=== PATIENT | female | born 1950 | race Caucasian/White ===

== ENCOUNTER → 2021-11-18 | Outpatient (CLI) | payer MEDICARE ==
--- NOTE | 2021-11-19 02:27 | MR ---
EXAMINATION TYPE: MR brain wo con DATE OF EXAM: 11/18/2021 COMPARISON: None HISTORY: Blood pressure issues, TIA Multiplanar multiecho imaging of the brain without contrast. There is mild cerebral cortical atrophy. There is no mass effect or midline shift. There is no sign o f intracranial hemorrhage. Corpus callosum is intact. Diffusion images show no evidence of an acute i nfarct. There are small patchy areas of increased signal in the deanna bilaterally. There are numerous white matter high signal foci at the cartwright-white matter junction both cerebral hemispheres which are c oalescent and measure up to more than 1 cm. The orbits are intact. Sella turcica is intact. There is no evidence of posterior fossa mass. IMPRESSION: Moderate white matter signal changes could relate to microvascular ischemia or demyelinating disease. There is also involvement of the deanna. No evidence of cortical infarct.
== END | disposition home or self-care (01) ==
LOC: RADMRIMAIN 19:04
PROVIDERS: ATTEND Physician Assistant Medical
DX: R90.89 Other abnormal findings on diagnostic imaging of central nervous system (principal)
CPT/HCPCS: 70551

== ENCOUNTER → 2021-12-13 | Outpatient (CLI) | payer MEDICARE ==
--- NOTE | 2021-12-17 13:02 | CA ---
Transthoracic Echo Report Name: Supriya Magdaleno Age: 71 Gender: F : 1950 Exam Date: 12/13/2021 13:58 Exam Location: [facility] Ht (in): 60 Wt (lb): 157 Ordering Physician: Bam Alejandro DO ([email or web address]) Attending/Referring Phys: [employer]ractor Operator Yadira Vasquez, KELLY Procedure CPT: Indications: R31.1 HEMATURIA Cardiac Hx: COPD, HTN, SMOKER [id number]. Technical Quality: Fair Contrast 1: N/A Total Dose (mL): Contrast 2: Total Dose (mL): MEASUREMENTS (Male / Female) Normal Values 2D ECHO LV Diastolic Diameter PLAX 4.6 cm 4.2 - 5.9 / 3.9 - 5.3 cm LV Systolic Diameter PLAX 3.5 cm IVS Diastolic Thickness 0.7 cm 0.6 - 1.0 / 0.6 - 0.9 cm LVPW Diastolic Thickness 1.0 cm 0.6 - 1.0 / 0.6 - 0.9 cm LV Relative Wall Thickness 0.4 LA Systolic Diameter LX 3.9 cm 3.0 - 4.0 / 2.7 - 3.8 cm LA Volume 36.0 cm??? 18 - 58 / 22 - 52 cm??? M-MODE Aortic Root Diameter MM 2.4 cm LA Systolic Diameter MM 3.5 cm LA Ao Ratio MM 1.5 AV Cusp Separation MM 1.8 cm DOPPLER MV Area PHT 4.0 cm??? Mitral E Point Velocity 72.3 cm/s Mitral A Point Velocity 91.7 cm/s Mitral E to A Ratio 0.8 MV Deceleration Time 188.0 ms MV E' Velocity 4.7 cm/s Mitral E to MV E' Ratio 15.3 FINDINGS Left Ventricle Normal Left ventricular size, wall thickness, systolic function with no obvious regional wall motion abnormalities. Normal Left ventricular diastolic filling pattern. Right Ventricle Normal right ventricular size and function. Right ventricular systolic pressure within normal limits. Right Atrium Normal right atrial size. Left Atrium Mildly increased left atrial diameter. Mitral Valve Mild mitral regurgitation. Aortic Valve Trileaflet aortic valve. Tricuspid Valve Structurally normal tricuspid valve. Pulmonic Valve Pulmonic valve not well visualized. Pericardium No pericardial effusion. Aorta Aortic root and proximal ascending aorta not well visualized. CONCLUSIONS Normal left ventricular ejection fraction 55-60%. Normal left ventricular diastolic function. Mild mitral regurgitation. No pericardial effusion. Previewed by: Dr. Bam Alejandro DO (Electronically Signed) Final Date: 14 Dec 2021 08:16
== END | disposition home or self-care (01) ==
LOC: RADECHMAIN 13:40
PROVIDERS: ATTEND Internal Medicine
DX: I34.0 Nonrheumatic mitral (valve) insufficiency (principal); I10 Essential (primary) hypertension
CPT/HCPCS: 93306

== ENCOUNTER → 2022-11-04 | Outpatient (CLI) | payer MEDICARE ==
--- NOTE | 2022-11-04 10:40 | XR ---
EXAMINATION TYPE: XR chest 2V DATE OF EXAM: 11/04/2022 COMPARISON: NONE TECHNIQUE: PA and lateral views submitted. HISTORY: Shortness of breath FINDINGS: There is consolidation along the lateral margin right upper lobe. Hyperinflation lungs. Hypertrophic and degenerative change of the spine. Biapical pleural thickening. Heart size normal with no overt fa ilure. Hypertrophic and degenerative changes of the spine. IMPRESSION: 1. Peripheral area of consolidation in subpleural location right upper lobe most likely in the basis of pneumonia. Pulmonary infarction or neoplasm not excluded. 2. Correlate for COPD.
== END | disposition home or self-care (01) ==
LOC: RADXRYALE 10:08
PROVIDERS: ATTEND Physician Assistant
DX: J44.1 Chronic obstructive pulmonary disease with (acute) exacerbation (principal); J98.4 Other disorders of lung
CPT/HCPCS: 71046

== ENCOUNTER → 2022-11-25 | Outpatient (CLI) | payer MEDICARE ==
--- NOTE | 2022-11-25 10:24 | XR ---
EXAMINATION TYPE: XR chest 2V DATE OF EXAM: 11/25/2022 COMPARISON: 11/04/2022 TECHNIQUE: PA and lateral views submitted. HISTORY: Abnormal x-ray FINDINGS: There is marked interval improvement. Consolidation involving the lateral margin of the right lung wi th some residual density. Atherosclerotic change aorta. Biapical pleural thickening. Heart size katty l. Scoliosis and degenerative changes of the spine. Hyperinflation suggests COPD. IMPRESSION: 1. Marked interval improvement in the area of consolidation involving the lateral margin of the right upper lobe. Resolving pneumonia. The most likely etiology. Continue to follow to complete resolution to exclude underlying neoplasm.
== END | disposition home or self-care (01) ==
LOC: RADXRYALE 09:58
PROVIDERS: ATTEND Physician Assistant
DX: J18.9 Pneumonia, unspecified organism (principal)
CPT/HCPCS: 71046

== ENCOUNTER → 2023-01-05 | Outpatient (CLI) | payer MEDICARE ==
--- NOTE | 2023-01-05 12:15 | XR ---
EXAMINATION TYPE: XR chest 2V DATE OF EXAM: 01/05/2023 COMPARISON: NONE TECHNIQUE: PA and lateral views submitted. HISTORY: SOB FINDINGS: The lungs are clear and there is no pneumothorax, pleural effusion, or focal pneumonia. Heart size normal and no overt failure. Osseous structures demonstrate hypertrophic and degenerative changes of the spine. Atherosclerotic change aorta. IMPRESSION: 1. No acute process.
== END | disposition home or self-care (01) ==
LOC: RADXRYALE 11:56
PROVIDERS: ATTEND Physician Assistant Medical
DX: R06.02 Shortness of breath (principal)
CPT/HCPCS: 71046

== ENCOUNTER → 2023-10-23 | Outpatient (CLI) | payer MEDICARE ==
--- NOTE | 2023-10-25 02:28 | PE ---
EXAMINATION TYPE: PET CT fusion skull to thigh DATE OF EXAM: 10/23/2023 COMPARISON: Chest x-ray January 05, 2023 HISTORY: Solitary pulmonary nodule TECHNIQUE: Following the intravenous administration of 9.94 mCi of F-18 FDG, whole body images are p erformed from the skull base to the midthigh. Images are reviewed on the computer in the coronal, ax ial, and sagittal planes. Reconstructed rotating images are created on independent workstation and r eviewed on the computer. A localization and attenuation correction CT is performed in conjunction w ith the PET scan. Blood glucose level equals 96. SCAN: Initial Scan FINDINGS: SKULL BASE AND NECK: Hypermetabolic uptake tongue base is presumed artifactual. Mild diffuse muscula r uptake is present. No definitive suspicious abnormal hypermetabolic uptake. CHEST, MEDIASTINUM, AND HILAR REGION: Moderate underlying emphysematous change is identified. There i s irregular masslike consolidation in the periphery of the right upper to midlung measuring 3.5 x 1.9 cm image 88 with mild hypermetabolic uptake, max SUV is 5.37. Similar but smaller nodular consolidat ion anterior left mid lung axial image 88 is noted. The max SUV is 4.43. No additional areas of abnor mal hypermetabolic uptake. ABDOMEN AND PELVIS: No hypermetabolic adrenal masses. Normal excretion. Nonspecific focal bowel hyper metabolic uptake in the right colon axial image 162. The max SUV is 12.43. Should consider colonoscop y to exclude focal mucosal lesion at this level if has not been performed in last 3 years. OSSEOUS STRUCTURES: No abnormal hypermetabolic uptake. OTHER CT: Moderate calcified plaque left carotid bulb level. Small sized hiatal hernia. Large calcified gallstone occupying the gallbladder. Distal colonic diverticula. Scoliosis in the tho racolumbar spine. Moderate to severe narrowing of both hip joints. IMPRESSION: 1. CT findings favor postinflammatory etiology. Advise short-term CT follow-up as neoplasm though les s likely cannot be excluded. If areas do not resolve then further investigation may be warranted. 2. Suspicious area in the proximal colon. Consider colonoscopy follow-up based on clinical correlatio n as hypermetabolic polyp or mass cannot be excluded.
== END | disposition home or self-care (01) ==
LOC: RADPETMAIN 09:54
PROVIDERS: ATTEND Internal Medicine Critical Care Medicine
DX: R91.1 Solitary pulmonary nodule (principal)
CPT/HCPCS: 78815; A9552

== ENCOUNTER 2023-11-20 09:54 | Day surgery (SDC) | payer MEDICARE ==
[2023-11-19 12:10] VITALS: BMI 28.3
[2023-11-20] MEDS: LACTATED RINGERS 1,000 ML IV SCH (10:55)
[2023-11-20 11:28] VITALS: TEMP 97.3
[2023-11-20] MEDS ORDERED: PROPOFOL 10 MG/ML 20 ML VIAL IV ONE (11:45)
--- NOTE | 2023-11-20 12:06 | P.PCN ---
Date of Procedure: 11/20/23 Procedure(s) Performed: BRIEF HISTORY: Patient is a 73-year-old pleasant White female scheduled for an elective colonoscopy as a part of Evaluation of abnormal PET scan that showed a possible colonic lesion in the right colon. Patient Never had a colonoscopy in the past PROCEDURE PERFORMED: ColonoscopyWith biopsy and tattooing with Petty in. PREOPERATIVE DIAGNOSIS: Abdominal CAT scan revealing increased uptake in the right colon IV sedation per Anesthesia. PROCEDURE: After informed consent was obtained, the patient, was brought into the endoscopy unit. IV sedation was administered by Anesthesia under continuous monitoring. Digital rectal examination was normal. Initially the Olympus CF-160 flexible video colonoscope was then inserted in the rectum, gradually advanced into the cecum without any difficulty. Careful examination was performed as the scope was gradually being withdrawn. Ileocecal valve and the appendiceal orifice were visualized and appeared normal. Prep was excellent. Mucosa of the cecum,Appeared normal. Hemoglobin descending colon there was a semicircumferential broad-based a 5 cm polyp identified and multiple biopsies were done from this area. Following this tattooing was performed with Petty ink. Rest of the ascending colon, transverse colon,Appeared normal. In the descending colon there was a 5 limited polyp that was removed by cold biopsy. Rest of the descending colon, sigmoid colon, and rectum appeared normal. Scattered sigmoid diverticulosis.Retroflexion was performed in the rectum and no lesions were seen. The patient tolerated the procedure well. IMPRESSION: 4-5 cm semicircumferential broad-based mid ascending colon polyp status post multiple biopsies followed by tattooing with Petty ink 5 mm descending colon polyp status post cold biopsy Scattered sigmoid diverticulosis RECOMMENDATIONS: Findings of this examination were discussed with the patient as well as a family. She was advised to follow with the biopsy results and she'll be seen in office in one to 2 weeks..Reason the biopsy results will discuss possibility of surgical evaluation versus referral to advance endoscopy unit at [facility] for endoscopy polypectomy .
[2023-11-20 12:13] VITALS: PULSE 67
[2023-11-20 12:55] VITALS: BP 140/75; RESP 18
== END 2023-11-20 12:42 ==
LOC: ORWHC2ENDO 09:54
PROVIDERS: ATTEND Internal Medicine Gastroenterology
DX: D12.2 Benign neoplasm of ascending colon (principal); D12.4 Benign neoplasm of descending colon; K57.30 Diverticulosis of large intestine without perforation or abscess without bleeding; I10 Essential (primary) hypertension; J44.9 Chronic obstructive pulmonary disease, unspecified; Z79.51 Long term (current) use of inhaled steroids; Z79.899 Other long term (current) drug therapy; Z98.41 Cataract extraction status, right eye; Z98.42 Cataract extraction status, left eye
CPT/HCPCS: 88305; 45380; 45381; J2704

== ENCOUNTER → 2024-02-05 | Outpatient (CLI) | payer MEDICARE ==
[2024-02-05 14:07] LABS: African American GFR (CKD) 68 (>60 ml/min/1.73 sqM); Blood Urea Nitrogen 17 mg/dL (7-17); Non-African American GFR(CKD) 59 (>60 ml/min/1.73 sqM)
--- NOTE | 2024-02-05 21:17 | CT ---
EXAMINATION TYPE: CT chest w con CT DLP: 369.80 mGycm, Automated exposure control for dose reduction was used. DATE OF EXAM: 02/05/2024 3:06 PM COMPARISON: Pet/CT 10/23/2023 CLINICAL INDICATION:Female, 74 years old with history of R91.1 SOLITARY PULMONARY NODULE; PHH, Solita ry pulmonary nodule TECHNIQUE: Multiple axial images were obtained through the chest. Sagittal and coronal reformats were created for review. Contrast used:100 mL of Isovue 300 with IV Contrast (None if empty) Oral contrast used: (None if empty) FINDINGS: LUNGS/ PLEURA: Severe centrilobular and paraseptal emphysema changes. Area of concern within the righ t chest has nearly completely resolved there is minimal interstitial streaky scarring now in place. N o focal inflammation, pneumothorax AIRWAY: Patent and unremarkable. HEART: Size within normal limits. MEDIASTINUM: No gross evidence of adenopathy. VASCULATURE: Aneurysmal dilation of the aorta as it enters the abdomen measuring up to 37 x 20 mm MUSCULOSKELETAL: No acute osseous abnormalities SOFT TISSUES/LYMPH NODES: Unremarkable. LOWER NECK: No significant findings. UPPER ABDOMEN: Partially visualized calcification in the gallbladder fossa compatible with IMPRESSION: 1. Near complete resolution of prior area of consolidation within the right lung compatible with lik carlos eduardo prior atelectasis and/or focal airspace disease. No suspicious masses. 2. Severe emphysema. 3. Large calcified fossa gallstone in the gallbladder. 4. 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
== END | disposition home or self-care (01) ==
LOC: RADCTMAIN 13:04
PROVIDERS: ATTEND Internal Medicine Critical Care Medicine
DX: R91.1 Solitary pulmonary nodule (principal); I71.23 Aneurysm of the descending thoracic aorta, without rupture; J43.9 Emphysema, unspecified; K80.20 Calculus of gallbladder without cholecystitis without obstruction
CPT/HCPCS: 82565; 84520; 71260; 36415; Q9967

== ENCOUNTER → 2024-04-26 | Outpatient (CLI) | payer MEDICARE ==
[2024-04-26 23:35] LABS: Appearance,Urine Cloudy (Clear); Bilirubin,Urine Negative (Negative); Blood,Urine Negative (Negative); Color,Urine Yellow (Yellow); Ketones,Urine Trace (Negative); Nitrite,Urine Negative (Negative); Specific Gravity,Urine 1.025 (1.001-1.030)
[2024-04-26 23:52] LABS: Bacteria,Urine 1+ (None Seen)
== END | disposition home or self-care (01) ==
LOC: LABWHC1 15:53
PROVIDERS: ATTEND Surgery Plastic and Reconstructive Surgery
DX: N39.0 Urinary tract infection, site not specified (principal)
CPT/HCPCS: 81001; 87086

== ENCOUNTER 2024-06-02 09:37 | Inpatient (IN) | payer MEDICARE ==
[2024-05-31 11:17] VITALS: BMI 31.2
--- NOTE | 2024-06-02 09:56 | P.GSHP ---
History of Present Illness H&P Date: 06/02/24 CCHIEF COMPLAINT: Colon cancer. HISTORY OF PRESENT ILLNESS: Supriya Magdaleno is a 74 year-old female recently diagnosed with colon cancer November 2023. Patient has had a long preoperative assessment including optimization for severe chronic obstructive pulmonary disease and cardiac risk assessment. Bradford horner had severe urinary tract infection with need of antibiotics also delaying her surgical intervention. Patient presents with colon cancer. PAST MEDICAL HISTORY: Please see list. PAST SURGICAL HISTORY: Please see list. MEDICATIONS: Please see list. ALLERGIES: Please see list. SOCIAL HISTORY: No illicit drug use FAMILY HISTORY: No reports of Crohn disease or ulcerative colitis. Strong family history of colon cancer. REVIEW OF ORGAN SYSTEMS: GI: Changes in bowel habits and blood in stools. Recent colonoscopy with adenoma. CONSTITUTIONAL: No fevers or chills. Has morbid obesity, BMI over 40. HEENT: Denies any trouble with vision, hearing or nosebleeds. No difficulty swallowing. LYMPHATIC: The patient denies any lumps and bumps around the neck. ENDOCRINE: Denies any thyroid disorders. Denies any blood sugar glucose intolerance. RESPIRATORY: Has chronic obstructive pulmonary disease less than 50% of lung capacity CARDIOVASCULAR: Has hypertensive heart disease with cardiomyopathy. GENITOURINARY: Recent urinary tract infection with blood clots. MUSCULOSKELETAL: Has occassional back pain, stiffness or joint arthritis. NEUROLOGIC: Denies any numbness or tingling along the distal extremities. No seizure disorders or headaches. PSYCHIATRIC: Denies any depression or suicidal ideation. HEMATOLOGIC: Denies any abnormal bleeding or bruising. BREASTS: Denies any breast lumps, pain or nipple discharge. SKIN: No current skin cancer. No rash. PHYSICAL EXAM: VITAL SIGNS: Stable Patient is a 74-year-old female. GENERAL: Well developed and in no acute distress. Pleasant. HEENT: No sclera icterus. Extraocular movements grossly intact. Moist buccal mucosa. Head is atraumatic, normocephalic. Hears conversational speech. No nasal drainage. Wears glasses. NECK: Supple without lymphadenopathy. No JV distention. CHEST: Non-labored respirations and equal bilateral excursions. CARDIOVASCULAR: Regular rate and rhythm. Palpable 2+ radial pulses. ABDOMEN: Obese. Nontender. MUSCULOSKELETAL: No clubbing, cyanosis or edema. NEUROLOGIC: No focal or lateralizing signs. PSYCH: Appropriate affect. Alert and oriented to person, place and time. SKIN: Well perfused. Good skin turgor. STUDIES: CT of the chest demonstrating severe chronic struct of pulmonary disease PATHOLOGY: Reviewed and positive for malignancy adenocarcinoma. RECORDS: Cardiac risk assessment demonstrates high risk. ASSESSMENT: 1. Colon cancer. 2. Lung nodule. 3. Morbid obesity due to excess calories 4. COPD. PLAN: 1. Recommend endoscopy to tattoo and for surgical resection via laparoscopic approach 2. Inpatient admission advised due to colon cancer and chronic obstructive pulmonary disease with limited lung volume 3. Enhanced colon recovery described 4. Robotic approach described possibility of open technique for colon resection 5. Patient is at moderate to high risk for complications due to comorbidities Past Medical History Past Medical History: COPD, GERD/Reflux, Hypertension, Thyroid Disorder Additional Past Medical History / Comment(s): chronic emphysema,started on O2@ 2 L NC,"rt lung nodule-had follow up CT and seen something in colon that needed to have colonoscopy" TREATED FOR UTI 04/26/24 History of Any Multi-Drug Resistant Organisms: None Reported Past Surgical History: Orthopedic Surgery Additional Past Surgical History / Comment(s): cyst removed left hand, janel cataract, COLONOSCOPY Past Anesthesia/Blood Transfusion Reactions: No Reported Reaction Additional Past Anesthesia/Blood Transfusion Reaction / Comment(s): no hx blood transfusion Smoking Status: Former smoker - Past Family History Mother Family Medical History: Cancer Additional Family Medical History / Comment(s): ovarian CA Medications and Allergies Home Medications Medication Instructions Recorded Confirmed Type Albuterol Inhaler [Ventolin Hfa 1 - 2 puff INHALATION Q6H PRN 11/19/23 05/31/24 History Inhaler] Budesonide/Formoterol Fumarate 2 puff INHALATION BID 11/19/23 05/31/24 History [Symbicort 160-4.5 Mcg Inhaler] Cholecalciferol [Vitamin D3 (25 50 mcg PO DAILY 11/19/23 05/31/24 History Mcg = 1000 Iu)] Citalopram Hydrobromide 20 mg PO QAM 11/19/23 05/31/24 History [Citalopram HBr] Ipratropium-Albuterol Nebulize 3 ml INHALATION QID 11/19/23 05/31/24 History [Duoneb 0.5 mg-3 mg/3 ml Soln] Levothyroxine Sodium [Synthroid] 50 mcg PO QAM 11/19/23 05/31/24 History Metoprolol Tartrate [Lopressor] 50 mg PO BID 11/19/23 05/31/24 History [place]-3/Dha/Epa/Fish Oil [Fish Oil 1 each PO DAILY 11/19/23 05/31/24 History 1,000 mg Softgel] Omeprazole [PriLOSEC] 20 mg PO Q2D 11/19/23 05/31/24 History QUEtiapine FUMARATE 50 mg PO HS 11/19/23 05/31/24 History lisinopriL [Lisinopril] 10 mg PO BID 11/19/23 05/31/24 History tiZANidine HCL 4 mg PO DAILY 11/19/23 05/31/24 History traZODone HCL [Desyrel] 100 mg PO HS 11/19/23 05/31/24 History Allergies Allergy/AdvReac Type Severity Reaction Status Date / Time No Known Allergies Allergy Verified 05/31/24 11:05
[2024-06-02] MEDS: IV FLUID CONTINUATION 1,000 ML IV ONE (10:15)
[2024-06-02] MEDS ORDERED: Antibiotics per Pharmacy 1 EACH MISC MISCELLANE PRN (10:22)
[2024-06-02 10:39] LABS: Basophils % (A) 0 %; Eosinophils # (A) 0.7 k/uL (0-0.7); Eosinophils % (A) 6 %; HCT 34.9 % (34.0-46.0); HGB 11.5 gm/dL (11.4-16.0); Lymphocytes # (A) 1.5 k/uL (1.0-4.8); Lymphocytes % (A) 14 %; MCH 30.5 pg (25.0-35.0); MCHC 33.1 g/dL (31.0-37.0); MCV 92.3 fL (80.0-100.0); Mean Platelet Volume 6.8; Monocytes # (A) 0.5 k/uL (0-1.0); Monocytes % (A) 4 %; Neutrophils % (A) 73 %; Platelet Count 309 k/uL (150-450); RBC 3.78 m/uL (3.80-5.40); RDW 12.8 % (11.5-15.5); WBC 10.9 k/uL (3.8-10.6)
[2024-06-02 10:50] LABS: ALT 26 U/L (4-34); African American GFR (CKD) 68 (>60 ml/min/1.73 sqM); Albumin 4.3 g/dL (3.5-5.0); Anion Gap 11 mmol/L; Blood Urea Nitrogen 10 mg/dL (7-17); Calcium 8.5 mg/dL (8.4-10.2); Carbon Dioxide 21 mmol/L (22-30); Chloride 105 mmol/L (98-107); Glucose 117 mg/dL (74-99); Non-African American GFR(CKD) 59 (>60 ml/min/1.73 sqM); Sodium 137 mmol/L (137-145); Total Bilirubin 0.6 mg/dL (0.2-1.3); Total Protein 7.4 g/dL (6.3-8.2)
[2024-06-02 10:52] LABS: AST 38 U/L (14-36); Alkaline Phosphatase 59 U/L (38-126); Potassium 4.1 mmol/L (3.5-5.1)
[2024-06-02] MEDS: LACTATED RINGERS 1,000 ML IV SCH (11:06)
[2024-06-02] MEDS ORDERED: LIDOCAINE 1% INJ 10MG/ML (20 ML MDV) ONE (11:12)
[2024-06-02] MEDS ORDERED: PROPOFOL 10 MG/ML 20 ML VIAL IV ONE (11:12)
--- NOTE | 2024-06-02 11:29 | XR ---
EXAMINATION TYPE: XR chest 2V DATE OF EXAM: 06/02/2024 10:46 AM COMPARISON: Chest radiographs from 01/05/2023 CLINICAL INDICATION: Female, 74 years old with history of Shortness of breath; [facility] TECHNIQUE: XR chest 2V Frontal and lateral views of the chest. FINDINGS: Lungs/Pleura: There is flattening of the diaphragm with increased lucency of the lungs. No evidence o f pneumothorax, pleural effusion or focal consolidation. Pulmonary vascularity: Unremarkable. Heart/mediastinum: Cardiomediastinal silhouette is unremarkable. Atherosclerotic calcifications are seen in the aorta. Musculoskeletal: No acute osseous pathology. Other findings: None IMPRESSION: 1. No acute cardiopulmonary disease process. 2. COPD changes. [facility], , 06/02/2024 11:27 AM
--- NOTE | 2024-06-02 12:21 | P.PCN ---
Date of Procedure: 06/02/24 Description of Procedure: PREOPERATIVE DIAGNOSIS: Ascending colon cancer POSTOPERATIVE DIAGNOSIS: Ascending colon cancer Colonoscopy screening. Diverticulosis, scattered. OPERATION: Colonoscopy to the cecum, ileocecal valve and appendiceal orifice. Colonoscopy with injection of Petty ink, 5 cc SURGEON: Aliyah Ng MD. ANESTHESIA: MAC. INDICATIONS: The patient is a 74-year-old female who presents for colonoscopy screening. Benefits and risks were described and informed consent was obtained. DESCRIPTION OF PROCEDURE: The patient had undergone Sutab prep. The patient had been brought into the operating room and laid in the left lateral decubitus position. After adequate intravenous sedation, the rectum was examined with 2% lidocaine jelly. No external hemorrhoids were encountered. The rectal tone was within normal limits. No lesions were palpated in the rectal vault. An Olympus colonoscope was advanced until the cecum, ileocecal valve and appendiceal orifice were clearly viewed. The prep was excellent. Scattered diverticulosis was encountered. Mass along the ascending colon tattooed with Petty ink 5 cc. No evidence of focal colitis was found. Retroflexion of the scope demonstrated grade 1 internal hemorrhoids without active bleeding or inflammation. The colon was desufflated. The patient had tolerated the procedure well. Withdrawal time was over 6 minutes. FINDINGS: Aronchick preparation quality scale 1 (1-5) Injection of Petty ink 5 cc, ascending colon for ascending colon mass Internal hemorrhoids, grade 3 External prolapsed hemorrhoids, grade 3 No arteriovenous malformations. No focal colitis. RECOMMENDATIONS: Recommend colectomy for ascending colon mass/cancer. Inpatient admission described. Plan - Discharge Summary Discharge Rx Participant: Yes New Discharge Prescriptions: No Action Albuterol Inhaler [Ventolin Hfa Inhaler] 1 - 2 puff INHALATION Q6H PRN PRN Reason: sob Ipratropium-Albuterol Nebulize [Duoneb 0.5 mg-3 mg/3 ml Soln] 3 ml INHALATION QID Omeprazole [PriLOSEC] 20 mg PO Q2D lisinopriL [Lisinopril] 10 mg PO BID traZODone HCL [Desyrel] 100 mg PO HS QUEtiapine FUMARATE 50 mg PO HS tiZANidine HCL 4 mg PO DAILY Metoprolol Tartrate [Lopressor] 50 mg PO BID [place]-3/Dha/Epa/Fish Oil [Fish Oil 1,000 mg Softgel] 1 each PO DAILY Cholecalciferol [Vitamin D3 (25 Mcg = 1000 Iu)] 50 mcg PO DAILY Levothyroxine Sodium [Synthroid] 50 mcg PO QAM Citalopram Hydrobromide [Citalopram HBr] 20 mg PO QAM Budesonide/Formoterol Fumarate [Symbicort 160-4.5 Mcg Inhaler] 2 puff INHALATION BID Discharge Medication List Albuterol Inhaler [Ventolin Hfa Inhaler] 1 - 2 puff INHALATION Q6H PRN 11/19/23 [History] Budesonide/Formoterol Fumarate [Symbicort 160-4.5 Mcg Inhaler] 2 puff INHALATION BID 11/19/23 [History] Cholecalciferol [Vitamin D3 (25 Mcg = 1000 Iu)] 50 mcg PO DAILY 11/19/23 [History] Citalopram Hydrobromide [Citalopram HBr] 20 mg PO QAM 11/19/23 [History] Ipratropium-Albuterol Nebulize [Duoneb 0.5 mg-3 mg/3 ml Soln] 3 ml INHALATION QID 11/19/23 [History] Levothyroxine Sodium [Synthroid] 50 mcg PO QAM 11/19/23 [History] Metoprolol Tartrate [Lopressor] 50 mg PO BID 11/19/23 [History] [place]-3/Dha/Epa/Fish Oil [Fish Oil 1,000 mg Softgel] 1 each PO DAILY 11/19/23 [History] Omeprazole [PriLOSEC] 20 mg PO Q2D 11/19/23 [History] QUEtiapine FUMARATE 50 mg PO HS 11/19/23 [History] lisinopriL [Lisinopril] 10 mg PO BID 11/19/23 [History] tiZANidine HCL 4 mg PO DAILY 11/19/23 [History] traZODone HCL [Desyrel] 100 mg PO HS 11/19/23 [History]
[2024-06-02] MEDS ORDERED: ALBUTEROL NEBULIZED 2.5 MG/3 ML INHALATION PRN (13:04)
[2024-06-02] MEDS: metroNIDAZOLE 500 MG TAB PO SCH (13:43)
[2024-06-02] MEDS: NEOMYCIN 500 MG TAB PO SCH (13:43)
--- NOTE | 2024-06-02 15:12 | P.CNPUL ---
History of Present Illness Consult date: 06/02/24 Requesting physician: Aliyah Ng Reason for consult: COPD, other Chief complaint: Suspected colon cancer. History of present illness: Pulmonary consultation dated June 02, 2024. This is a 75-year-old female with a history of COPD. The patient has pretty severe COPD, with an FEV1 that is 46% of predicted. Her FEV1 is 0.86 L. The patient had a colonoscopy today, and is scheduled to have colon surgery tomorrow, with Dr. Ng. She is suspected to have colon cancer. Pulmonary function test done in the office reveal an FEV1 that is 0.86 L which is 46% of predicted. Her MVV is 41 L/min, and her RV/TLC ratio 72%. Based on these data, the patient was at moderate to high increased operative risk, based on pulmonary function criteria. The patient was diagnosed with colon cancer, November 2023. The patient was sent to me for optimization of her lung function. As an outpat ient, the patient is maintained on updrafts, with DuoNeb, and Symbicort. We restarted those medications. I did explain to the patient, that she may have a prolonged period of time on the mechanical ventilator. White count is 10.9, hemoglobin 11.5, hematocrit 34.9, and platelet count is normal. Sodium 137, potassium 4.1, chlorides 105, CO2 21, BUN and creatinine were 10 and 0.96. X- ray is negative for acute cardiopulmonary disease. There are changes of COPD. Review of Systems REVIEW OF SYSTEMS: CONSTITUTIONAL: [Negative.] NEUROLOGIC: [ Negative.] HEENT: [ Negative.] CARDIAC: [Negative.] PULMONARY: Shortness of breath on exertion, as well as coughing, and wheezing. GI: [Negative.] : [Negative.] RHEUMATOLOGIC: [ Negative.] IMMUNOLOGIC: [ Negative.] ENDOCRINE: [Negative. ] DERMATOLOGIC: [Negative.] Past Medical History Past Medical History: COPD, GERD/Reflux, Hypertension, Thyroid Disorder Additional Past Medical History / Comment(s): chronic emphysema,started on O2@ 2 L NC,"rt lung nodule-had follow up CT and seen something in colon that needed to have colonoscopy" TREATED FOR UTI 04/26/24 History of Any Multi-Drug Resistant Organisms: None Reported Past Surgical History: Orthopedic Surgery Additional Past Surgical History / Comment(s): cyst removed left hand, janel cataract, COLONOSCOPY Past Anesthesia/Blood Transfusion Reactions: No Reported Reaction Additional Past Anesthesia/Blood Transfusion Reaction / Comment(s): no hx blood transfusion Smoking Status: Former smoker - Past Family History Mother Family Medical History: Cancer Additional Family Medical History / Comment(s): ovarian CA Medications and Allergies Home Medications Medication Instructions Recorded Confirmed Type Albuterol Inhaler [Ventolin Hfa 1 - 2 puff INHALATION Q6H PRN 11/19/23 06/02/24 History Inhaler] Budesonide/Formoterol Fumarate 2 puff INHALATION BID 11/19/23 06/02/24 History [Symbicort 160-4.5 Mcg Inhaler] Cholecalciferol [Vitamin D3 (25 50 mcg PO DAILY 11/19/23 06/02/24 History Mcg = 1000 Iu)] Citalopram Hydrobromide 20 mg PO QAM 11/19/23 06/02/24 History [Citalopram HBr] Ipratropium-Albuterol Nebulize 3 ml INHALATION QID 11/19/23 06/02/24 History [Duoneb 0.5 mg-3 mg/3 ml Soln] Levothyroxine Sodium [Synthroid] 50 mcg PO QAM 11/19/23 06/02/24 History Metoprolol Tartrate [Lopressor] 50 mg PO BID 11/19/23 06/02/24 History [place]-3/Dha/Epa/Fish Oil [Fish Oil 1 each PO DAILY 11/19/23 06/02/24 History 1,000 mg Softgel] Omeprazole [PriLOSEC] 20 mg PO Q2D 11/19/23 06/02/24 History QUEtiapine FUMARATE 50 mg PO HS 11/19/23 06/02/24 History lisinopriL [Lisinopril] 10 mg PO BID 11/19/23 06/02/24 History tiZANidine HCL 4 mg PO DAILY 11/19/23 06/02/24 History traZODone HCL [Desyrel] 100 mg PO HS 11/19/23 06/02/24 History Allergies Allergy/AdvReac Type Severity Reaction Status Date / Time No Known Allergies Allergy Verified 06/02/24 10:16 Physical Exam Osteopathic Statement: *. No significant issues noted on an osteopathic structural exam other than those noted in the History and Physical/Consult. Vitals: Vital Signs Temp Pulse Resp BP Pulse Ox 06/02/24 14:30 98 F 102 H 18 178/95 93 L 06/02/24 13:40 84 18 162/83 98 06/02/24 11:57 82 18 162/87 97 06/02/24 11:42 84 16 151/85 97 06/02/24 11:08 83 22 190/81 94 L 06/02/24 10: 98.0 F 97 26 H 185/84 95 Intake and Output 06/02/24 06/02/24 06/02/24 06:59 14:59 22:59 Intake Total 700 Balance 700 Intake: IV 700 Other: Weight 74.9 kg No acute distress, oriented 3. No audible wheezing. The patient is currently on 3 L. No conversational dyspnea. HEENT examination is grossly unremarkable. Mucous membranes are moist. No oral lesions. Neck supple. Full range of motion. No adenopathy thyromegaly or neck vein distention. Cardiovascular examination reveals regular rhythm rate. S1-S2 normal. No S3 or S4. No discernible murmur noted. Heart sounds are distant. Lungs reveal mild expiratory wheezes. No rhonchi or crackles. Breath sounds ar e equal bilaterally but diminished throughout. Abdomen soft bowel sounds are heard. No masses or tenderness. Extremities are intact. No cyanosis clubbing or edema. Skin is without rash or lesion. Neurologic examination is brief but nonfocal. Results - Laboratory Findings CBC and BMP: 06/02/24 10:28 06/02/24 10:28 Abnormal lab findings: Abnormal Labs 06/02/24 06/02/24 10:28 10:28 WBC 10.9 H RBC 3.78 L Neutrophils # 8.0 H Carbon Dioxide 21 L Glucose 117 H AST 38 H - Diagnostic Findings Chest x-ray: image reviewed Assessment and Plan Assessment: Recently diagnosed colon cancer, November 2023 with anticipated colon resection, June 03, 2024. Colonoscopy, June 02, 2024. History of severe COPD, with an FEV1 that is 46% of predicted. History of hypertension. History of hypothyroidism. History of vitamin D deficiency. Gastroesophageal reflux disease. Previous history of tobacco use. Plan: Plan dated June 02, 2024. Based on the patient's lung function, that were done in the office, the patient is at moderate to high increased operative risk. The patient has severe COPD. She has stage III disease. FEV1 of 0.86 L or 46% of predicted. Her MVV is 41 L/min, and her RV/TLC ratio 72%. The patient was placed on Symbicort 160/4.5, 2 puffs twice a day, and updrafts with albuterol sulfate and ipratropium bromide, 4 times daily and as needed. She is also on oxygen, 3 L. The operative risks were explained to the patient, when I saw her in the office. No additional recommendations are made. Time with Patient: Greater than 30
[2024-06-02] MEDS: IPRATROPIUM-ALBUTEROL 3 ML NEB INHALATION SCH (15:42)
[2024-06-02] MEDS: PEG 3350 (236 GM/BTL) + LYTES 4,000 ML BOTTLE PO ONE (16:01)
[2024-06-02] MEDS: SODIUM CHLORIDE 0.9% 1,000 ML IV ONE (16:02)
[2024-06-02] MEDS: SODIUM CHLORIDE 0.9% 1,000 ML IV SCH (16:48)
[2024-06-02] MEDS: SYMBICORT 160-4.5 MCG INHALER INHALATION SCH (20:43)
[2024-06-02] MEDS: METOPROLOL TARTRATE 50 MG TAB PO SCH (20:51)
[2024-06-02] MEDS: lisinopriL 10 MG TAB PO SCH (20:51)
[2024-06-02] MEDS: QUEtiapine 50 MG TAB PO SCH (23:12)
[2024-06-02] MEDS: traZODone HCL 100 MG TAB PO SCH (23:12)
[2024-06-03 05:51] LABS: Basophils % (A) 0 %; Eosinophils # (A) 0.4 k/uL (0-0.7); Eosinophils % (A) 4 %; HCT 33.6 % (34.0-46.0); HGB 10.7 gm/dL (11.4-16.0); Hypochromasia Slight; Lymphocytes # (A) 1.5 k/uL (1.0-4.8); Lymphocytes % (A) 12 %; MCH 29.9 pg (25.0-35.0); MCHC 31.7 g/dL (31.0-37.0); MCV 94.2 fL (80.0-100.0); Mean Platelet Volume 7.3; Monocytes # (A) 0.7 k/uL (0-1.0); Monocytes % (A) 5 %; Neutrophils # (A) 9.6 k/uL (1.3-7.7); Neutrophils % (A) 77 %; Platelet Count 260 k/uL (150-450); RBC 3.56 m/uL (3.80-5.40); RDW 12.7 % (11.5-15.5); WBC 12.4 k/uL (3.8-10.6)
[2024-06-03 06:02] LABS: ALT 23 U/L (4-34); AST 30 U/L (14-36); African American GFR (CKD) 74 (>60 ml/min/1.73 sqM); Albumin 3.6 g/dL (3.5-5.0); Albumin/Globulin Ratio 1.3; Alkaline Phosphatase 55 U/L (38-126); Anion Gap 6 mmol/L; Blood Urea Nitrogen 6 mg/dL (7-17); Calcium 7.9 mg/dL (8.4-10.2); Carbon Dioxide 28 mmol/L (22-30); Chloride 104 mmol/L (98-107); Globulin 2.8 g/dL; Glucose 111 mg/dL (74-99); Non-African American GFR(CKD) 64 (>60 ml/min/1.73 sqM); Potassium 3.7 mmol/L (3.5-5.1); Sodium 138 mmol/L (137-145); Total Bilirubin 0.4 mg/dL (0.2-1.3); Total Protein 6.4 g/dL (6.3-8.2)
[2024-06-03] MEDS: CITALOPRAM HYDROBROMIDE 20 MG TAB PO SCH (10:09)
[2024-06-03] MEDS: tiZANidine 4 MG TAB PO SCH (10:09)
[2024-06-03] MEDS: IV FLUID CONTINUATION 600 ML IV ONE ×2 (12:35)
[2024-06-03] MEDS: ACETAMINOPHEN TAB 500 MG TAB PO PRN (12:57)
[2024-06-03] MEDS: ALVIMOPAN 12 MG CAPSULE PO PRN (12:57)
[2024-06-03] MEDS: MELOXICAM 7.5 MG TAB PO PRN (12:57)
[2024-06-03] MEDS: IV FLUID CONTINUATION 1,000 ML IV ONE (13:00)
[2024-06-03] MEDS: MIDAZOLAM 2 MG/2 ML VIAL IV ONE (13:04)
[2024-06-03] MEDS: HEPARIN SODIUM,PORCINE 5,000 UNIT/ML 1 ML VIAL SQ PRN (13:29)
[2024-06-03] MEDS ORDERED: LIDOCAINE 1% INJ 10MG/ML (20 ML MDV) ONE (14:06)
[2024-06-03] MEDS ORDERED: hydrALAZINE HCL 20 MG/ML 1 ML VIAL ONE (14:06)
[2024-06-03] MEDS ORDERED: ROPIVACAINE 5 MG/ML 30 ML VIAL ONE (14:06)
[2024-06-03] MEDS ORDERED: PHENYLEPHRINE 10 MG/ML VIAL ONE (14:06)
[2024-06-03] MEDS ORDERED: MIDAZOLAM 2 MG/2 ML VIAL ONE (14:06)
[2024-06-03] MEDS ORDERED: DEXAMETHASONE SOD PHOSPHATE 4 MG/ML 1 ML VIAL ONE (14:06)
[2024-06-03] MEDS ORDERED: NEOSTIGMINE 1 MG/ML 10 ML VIAL ONE (14:06)
[2024-06-03] MEDS ORDERED: SUCCINYLCHOLINE CHLORIDE 200 MG/10 ML VIAL IV ONE (14:06)
[2024-06-03] MEDS ORDERED: ALBUTEROL HFA INHALER INHALATION ONE (14:06)
[2024-06-03] MEDS ORDERED: GLYCOPYRROLATE 0.2 MG/ML 2 ML VIAL ONE (14:06)
[2024-06-03] MEDS ORDERED: fentaNYL (PF) 50 MCG/ML 2 ML AMP ONE (14:06)
[2024-06-03] MEDS ORDERED: PROPOFOL 10 MG/ML 20 ML VIAL IV ONE (14:06)
[2024-06-03] MEDS ORDERED: ROCURONIUM 10 MG/ML (5 ML VIAL) IV ONE (14:06)
--- NOTE | 2024-06-03 14:10 | P.ANPRN ---
Procedure Note - Anesthesia - Nerve Block Performed Bilateral Erector Spinae Single Date of Procedure: 06/03/24 Procedure Start Time: 13:04 Procedure Stop Time: 13:09 Location of Patient: PreOp Indication: Acute Post-Operative Pain, Analgesia, Requested by Surgeon Sedation Type: Sedate with meaningful contact maintained Preparation: Sterile Prep Position: Prone Catheter: None Needle Types: Pajunk Needle Gauge: 21 Ultrasound used to visualize needle placement: Yes Ultrasound used to observe medication spread: Yes Injectate: 0.5% Ropivacaine (see comment for volume) (Ropiv 20ml+Decadron 4mg---Each side. T11- Needle level.) Blood Aspirated: No Pain Paresthesia on Injection Noted: No Resistance on Injection: Normal Image Stored and Saved: Yes Events: Uneventful and Well Tolerated
[2024-06-03] MEDS: metroNIDAZOLE-NS PMX 500 MG in SALINE 1 100ML.BAG IVPB PRN (14:11)
--- NOTE | 2024-06-03 14:26 | P.PN ---
Subjective Progress Note Date: 06/03/24 This is a 75-year-old female with a history of COPD. The patient has pretty severe COPD, with an FEV1 that is 46% of predicted. Her FEV1 is 0.86 L. The patient had a colonoscopy today, and is scheduled to have colon surgery tomorrow, with Dr. Ng. She is suspected to have colon cancer. Pulmonary function test done in the office reveal an FEV1 that is 0.86 L which is 46% of predicted. Her MVV is 41 L/min, and her RV/TLC ratio 72%. Based on these data, the patient was at moderate to high increased operative risk, based on pulmonary function criteria. The patient was diagnosed with colon cancer, November 2023. The patient was sent to me for optimization of her lung function. As an outpat ient, the patient is maintained on updrafts, with DuoNeb, and Symbicort. We restarted those medications. I did explain to the patient, that she may have a prolonged period of time on the mechanical ventilator. White count is 10.9, hemoglobin 11.5, hematocrit 34.9, and platelet count is normal. Sodium 137, potassium 4.1, chlorides 105, CO2 21, BUN and creatinine were 10 and 0.96. X- ray is negative for acute cardiopulmonary disease. There are changes of COPD. The patient is seen today June 03, 2024 in follow-up on the regular medical floor. She is sitting up in a chair at the bedside. Awake and alert in no acute distress. Maintaining good O2 saturations in the 90s on 3 L/min per nasal cannula. She has normal saline at 50 mL/h. White count 12.4. Hemoglobin 10.7. Platelets 260. Sodium 138. Potassium 3.7. Bicarb 28. BUN 6. Creatinine 0.9. Glucose 111. Plan is for laparoscopic sigmoid colectomy/low anterior resection today. Objective - Vital Signs Vital signs: Vital Signs Temp 97.4 F L 06/03/24 12:41 Pulse 70 06/03/24 13:20 Resp 16 06/03/24 13:20 BP 110/56 06/03/24 13:20 Pulse Ox 97 06/03/24 13:20 FiO2 Intake & Output 06/02/24 06/03/24 06/03/24 18:59 06:59 18:59 Intake Total 700 0 450 Output Total 3 Balance 700 -3 450 Weight 74.9 kg Intake: IV 700 450 Oral 0 Output: Stool 3 Other: Voiding Method Bedside Commode # Voids 1 3 # Bowel Movements 1 1 - Exam GENERAL EXAM: Alert, pleasant 74-year-old female, on 3 L nasal cannula, comfortable in no apparent distress. HEAD: Normocephalic. EYES: Normal reaction of pupils, equal size. NOSE: Clear with pink turbinates. THROAT: No erythema or exudates. NECK: No masses, no JVD. CHEST: No chest wall deformity. LUNGS: Equal air entry with no crackles, wheeze, rhonchi or dullness. CVS: S1 and S2 normal with no audible murmur, regular rhythm. ABDOMEN: No hepatosplenomegaly, normal bowel sounds, no guarding or rigidity. SPINE: No scoliosis or deformity SKIN: No rashes CENTRAL NERVOUS SYSTEM: No focal deficits, tone is normal in all 4 extremities. EXTREMITIES: There is no peripheral edema. No clubbing, no cyanosis. Peripheral pulses are intact. - Labs CBC & Chem 7: 06/03/24 05:37 06/03/24 05:37 Labs: Abnormal Lab Results - Last 24 Hours (Table) 06/03/24 06/03/24 Range/Units 05:37 05:37 WBC 12.4 H (3.8-10.6) k/uL RBC 3.56 L (3.80-5.40) m/uL Hgb 10.7 L (11.4-16.0) gm/dL Hct 33.6 L (34.0-46.0) % Neutrophils # 9.6 H (1.3-7.7) k/uL BUN 6 L (7-17) mg/dL Glucose 111 H (74-99) mg/dL Calcium 7.9 L (8.4-10.2) mg/dL Assessment and Plan Assessment: Recently diagnosed colon cancer, November 2023 with anticipated colon resection, June 03, 2024. Colonoscopy, June 02, 2024. History of severe COPD, with an FEV1 that is 46% of predicted. History of hypertension. History of hypothyroidism. History of vitamin D deficiency. Gastroesophageal reflux disease. Previous history of tobacco use. Plan: The patient was seen and evaluated Labs and medications reviewed Plan is for surgical resection of the colon mass today We will continue to follow and make further recommendations based on her clinical status I have personally seen and examined the patient, performed the documentation and the assessment and plan as written. Number of minutes spent on the visit: 10 Dictation was produced using [employer] dictation software. Please excuse any grammatical, word or spelling errors.
[2024-06-03] MEDS: LIDOCAINE 1%-EPI 1:100,000 20 ML VIAL SQ ONE (14:47)
[2024-06-03] MEDS: LACTATED RINGERS 1,000 ML IV ONE ×2 (15:37→16:48)
[2024-06-03] MEDS ORDERED: HYDROmorphone 2 MG/ML 1 ML SYRINGE IVP PRN (17:42)
[2024-06-03] MEDS ORDERED: ONDANSETRON 4 MG/2 ML VIAL IVP PRN (17:42)
[2024-06-03] MEDS: SODIUM CHLORIDE 0.9% 1,000 ML IV ONE (20:21)
[2024-06-03 21:00] LABS: Glucose,Whole Blood 136 mg/dL (70-110)
--- NOTE | 2024-06-03 21:43 | P.OP ---
Date of Procedure: 06/03/24 Description of Procedure: SURGEON: ARTHUR MANZO MD Preoperative Diagnosis: 1. Ascending colon cancer 2. Chronic obstructive pulmonary disease oxygen dependent 3. Obesity due to excess calories, BMI 32.2 4. Hypertensive heart disease 5. Hypothyroidism 6. Depressive disorder 7. Leukocytosis present on admission 8. Generalized anxiety disorder 9. Gastroesophageal reflux disease 10. Dehydration Postoperative Diagnosis: 1. Ascending colon cancer 2. Chronic obstructive pulmonary disease oxygen dependent 3. Obesity due to excess calories, BMI 32.2 4. Hypertensive heart disease 5. Hypothyroidism 6. Depressive disorder 7. Leukocytosis present on admission 8. Generalized anxiety disorder 9. Gastroesophageal reflux disease 10. Dehydration 11. Chronic cholecystitis with pericholecystic adhesions Procedure(s) Performed: 1. Robot-assisted daVinci Xi laparoscopic right hemicolectomy using multi four- port technique 2. Robot-assisted daVinci Xi laparoscopic lysis of adhesions over 30 minutes Anesthesia: GETA, local, regional Estimated Blood Loss (ml): 10 Pathology: other (Right colon) Condition: stable SPECIMENS REMOVED: right colon en bloc, terminal ileum, anastomosis COMPLICATIONS: None. Disposition: floor Operative Findings: 1. Tattoo mid ascending colon resected 2. Redundant hepatic flexure with retroperitoneal attachment ascending colon and hepatic flexure requiring extensive dissection 3. Chronic cholecystitis with severe adhesions pericholecystic divided using vessel sealer INDICATIONS: The patient is a 74-year-old female who presents with dysplastic high-grade ascending colon adenoma with possible colon cancer. Colonoscopy was performed with tattooing and marking of the lesion. Pulmonary and cardiac risk assessment including optimization was performed. Surgical intervention with colon resection was described in detail. Benefits and risks, including infection, open surgery possibility for additional surgery was discussed at length. Informed consent was obtained. All questions of the patient and family were answered. DESCRIPTION: Earlier the patient had undergone a bowel prep using the enhanced colon recovery program. The patient was transferred to the operating room and placed in supine position. After general anesthetic, a khan catheter was placed. The abdomen was then prepped and draped in standard sterile fashion as Ioban was placed along the abdomen to minimize any contamination of skin floor. After a timeout protocol was performed, attention was then brought to the left upper quadrant whereby a 0 degree 5 mm laparoscopic trocar entry was performed. The abdominal cavity was entered and insufflated to 15 mmHg pressure, which was tolerated well. Diagnostic laparoscopy demonstrated no injury to bowel, viscera or mesentery. Next two robotic 8-mm trocars were placed along the left lower lateral abdominal wall. A 12 mm trocar was placed along the left upper quadrant. Ports were placed 9 cm apart from each other including 15-20 cm away from the target anatomy of the pelvis. The 5-mm port was exchanged for a 12 mm robotic port. The patient was then placed in Trendelenburg position, at least 7. The robotic da Mary XI system was primed and docked from the left side of the patient. Using atraumatic graspers and vessel sealer, the robotic system was docked and primed as described. Instruments were interchanged by the assistant loan processor including scissors, needle reefer truck driver, robotic stapler and vessel sealer. Next, attention was brought to identify the cecum with tattooing. A stay suture using 0 silk was placed along the anterior serosa of the ascending colon including along the terminal ileum. The terminal ileum and ascending colon mesentery was mobilized using a vessel sealer whereby the colon was marked and tagged. Using robot stapler 60 mm bite load, the distal ileum was divided 5 cm proximal to the ileocecal valve. The mesentery of the ascending colon was mobilized towards the midline using a vessel sealer with moderate retroperitoneal attachments at the right lateral abdominal wall lysed using vessel sealer for over 30 minutes. Gallbladder was identified with thickened gallbladder wall consistent with cholecystitis, chronic. Next, the ascending colon was divided using the robotic stapler 60 mm green staple load. The rest of the colon mesentery was mobilized using vessel sealer including using blunt dissection. The vascular pedicle of the ileocolic artery was controlled using vessel sealer. Hepatic flexure was highly redundant requiring additional dissection and mobilization. The proximal colon and distal ileum was brought in a side to side anastomotic fashion after placing interrupted sutures along the proposed andi- lumen using 3-0 silk. A colotomy and enterotomy was prepared along both limbs along the antimesenteric border. Next, 60 mm green stapler loads were fired to create the andi-lumen. The andi-lumen was reapproximated using 3-0 silk followed by 60 mm green load for closure of the enterostomy. An additional 3-0 silk was placed along the seat of the anastomosis to prevent tension or torsion. All needles were removed from the abdominal cavity. The robot was undocked. I re-scrubbed into the case. Via the 12 mm port of the left upper quadrant, the right colon was removed using a 15-mm Endo Catch bag after widening the skin incision to 3-cm. All sponges were removed from the abdominal cavity. No contamination had occurred throughout this portion of the case. The fascial defect was oversewn using 0 Vicryl and Naren Keating. Next all pneumoperitoneum was evacuated from the abdominal cavity. The 8-mm trocar sites were reapproximated using 4-0 Monocryl in an interrupted subcuticular fashion. Local anesthetic was infiltrated to all wounds for postop analgesia. All incisions were also cleansed with diluted hydrogen peroxide. An Optifoam surgical dressing was placed over the left upper quadrant incision of the colon extraction site. Dermabond was applied to the rest of the skin incisions. Abdominal binder was placed. The patient had tolerated the procedure well. The patient was extubated successfully. Intraoperative photos were reviewed with the patient's family who were overall pleased with the level of care. The patient was transferred to the postanesthesia care unit in stable condition.
[2024-06-03] MEDS: HEPARIN SODIUM,PORCINE 5,000 UNIT/ML 1 ML VIAL SQ SCH (21:45)
[2024-06-04] MEDS: ALVIMOPAN 12 MG CAPSULE PO SCH (08:51)
[2024-06-04 09:30] VITALS: RESP 16
--- NOTE | 2024-06-04 12:16 | P.PN ---
Subjective Progress Note Date: 06/04/24 This is a 75-year-old female with a history of COPD. The patient has pretty severe COPD, with an FEV1 that is 46% of predicted. Her FEV1 is 0.86 L. The patient had a colonoscopy today, and is scheduled to have colon surgery tomorrow, with Dr. Ng. She is suspected to have colon cancer. Pulmonary function test done in the office reveal an FEV1 that is 0.86 L which is 46% of predicted. Her MVV is 41 L/min, and her RV/TLC ratio 72%. Based on these data, the patient was at moderate to high increased operative risk, based on pulmonary function criteria. The patient was diagnosed with colon cancer, November 2023. The patient was sent to me for optimization of her lung function. As an outpat ient, the patient is maintained on updrafts, with DuoNeb, and Symbicort. We restarted those medications. I did explain to the patient, that she may have a prolonged period of time on the mechanical ventilator. White count is 10.9, hemoglobin 11.5, hematocrit 34.9, and platelet count is normal. Sodium 137, potassium 4.1, chlorides 105, CO2 21, BUN and creatinine were 10 and 0.96. X- ray is negative for acute cardiopulmonary disease. There are changes of COPD. The patient is seen today June 03, 2024 in follow-up on the regular medical floor. She is sitting up in a chair at the bedside. Awake and alert in no acute distress. Maintaining good O2 saturations in the 90s on 3 L/min per nasal cannula. She has normal saline at 50 mL/h. White count 12.4. Hemoglobin 10.7. Platelets 260. Sodium 138. Potassium 3.7. Bicarb 28. BUN 6. Creatinine 0.9. Glucose 111. Plan is for laparoscopic sigmoid colectomy/low anterior resection today. The patient is seen today June 04, 2024 in follow-up on the regular medical floor. Post operative day #1 of a robotic assisted right hemicolectomy. She is awake and alert in no acute distress. Currently sitting up at the bedside. Maintaining good O2 saturations in the 90s on 3 L/min per nasal cannula. She has normal saline at 50 mL/h. She is continued on DuoNeb and elations, Symbicort. Heparin for DVT prophylaxis. Objective - Vital Signs Vital signs: Vital Signs Temp 98.1 F 06/04/24 07:31 Pulse 88 06/04/24 09:16 Resp 16 06/04/24 07:31 BP 149/76 06/04/24 07:31 Pulse Ox 91 L 06/04/24 09:07 FiO2 Intake & Output 06/03/24 06/04/24 06/04/24 18:59 06:59 18:59 Intake Total 2450 1637 Output Total 120 Balance 2330 1637 Intake: IV 2450 Intake, IV Titration 1400 Amount Sodium Chloride 0.9% 1, 400 000 ml @ 50 mls/hr IV . Q20H [facility] Rx#:[id number] Sodium Chloride 0.9% 1, 1000 000 ml @ 500 mls/hr IV . Q2H ONE Rx#:[id number] Oral 237 Output: Urine 110 Estimated Blood Loss 10 Other: Voiding Method Indwelling Catheter - Exam GENERAL EXAM: Alert, 74-year-old female, on 3 L nasal cannula, up in a chair, comfortable in no apparent distress. HEAD: Normocephalic. EYES: Normal reaction of pupils, equal size. NOSE: Clear with pink turbinates. THROAT: No erythema or exudates. NECK: No masses, no JVD. CHEST: No chest wall deformity. LUNGS: Equal air entry with no crackles, wheeze, rhonchi or dullness. CVS: S1 and S2 normal with no audible murmur, regular rhythm. ABDOMEN: Incisions dry and intact, normal bowel sounds, no guarding or rigidity. SPINE: No scoliosis or deformity SKIN: No rashes CENTRAL NERVOUS SYSTEM: No focal deficits, tone is normal in all 4 extremities. EXTREMITIES: There is no peripheral edema. No clubbing, no cyanosis. Peripheral pulses are intact. - Labs CBC & Chem 7: 06/03/24 05:37 06/03/24 05:37 Labs: Abnormal Lab Results - Last 24 Hours (Table) 06/03/24 Range/Units 20:59 POC Glucose (mg/dL) 136 H (70-110) mg/dL Assessment and Plan Assessment: Recently diagnosed colon cancer, November 2023. Status post robotic assisted right hemicolectomy. Postoperative day #1 Colonoscopy, June 02, 2024 History of severe COPD, with an FEV1 that is 46% of predicted History of hypertension History of hypothyroidism History of vitamin D deficiency Gastroesophageal reflux disease Previous history of tobacco use Plan: The patient was seen and evaluated Medications reviewed Status post right hemicolectomy Stable and on 3 L nasal cannula Titrate the FiO2 as tolerated Encourage increased use of the incentive spirometer Increase her activity as tolerated I have personally seen and examined the patient, performed the documentation and the assessment and plan as written. Number of minutes spent on the visit: 10 Dictation was produced using [employer] dictation software. Please excuse any grammatical, word or spelling errors.
--- NOTE | 2024-06-04 15:37 | P.DS ---
Providers Date of admission: 06/02/24 10:22 Expected date of discharge: 06/04/24 Attending physician: Aliyah Ng Consults: 06/02/24 12:04 Consult Physician Routine Consulting Provider: Mauro Geller Consult Reason/Comments: COPD, moderate Do you want consulting provider notified?: Yes 06/03/24 04:42 Consult Physician Routine Consulting Provider: [facility] Consult Reason/Comments: [facility] Do you want consulting provider notified?: Yes [facility] Course: Postoperative Diagnosis: 1. Ascending colon cancer 2. Chronic obstructive pulmonary disease oxygen dependent 3. Obesity due to excess calories, BMI 32.2 4. Hypertensive heart disease 5. Hypothyroidism 6. Depressive disorder 7. Leukocytosis present on admission 8. Generalized anxiety disorder 9. Gastroesophageal reflux disease 10. Dehydration 11. Chronic cholecystitis 12. Right upper quadrant peritoneal adhesions COURSE: The patient is a 74-year-old female who had a mass identified along the ascending colon questionable for cancer. She underwent extensive cardiopulmonary risk assessment including presurgical dietary training in preparation for her procedure. Patient had colonoscopy with tattooing of the area of concern. She underwent right hemicolectomy with features of chronic cholecystitis and abdominal wall adhesions addressed. Robotic right colectomy was performed. Postoperatively, patient reports that she was breathing well, she was passing flatus, she was voiding spontaneously, she was ambulating, to lerating diet, without nausea, pain controlled exceeding expectations after surgery. Discharge instructions were verbally described with close outpatient follow-up via telehealth. Patient was stable for discharge. All questions were addressed. Procedures: Procedure(s) Performed: 1. Robot-assisted daVinci Xi laparoscopic right hemicolectomy using multi four- port technique Anesthesia: GETA, local, regional Estimated Blood Loss (ml): 10 Pathology: other (Right colon) Condition: stable SPECIMENS REMOVED: right colon en bloc, terminal ileum, anastomosis COMPLICATIONS: None. Disposition: floor Operative Findings: 1. Tattoo mid ascending colon resected 2. Redundant hepatic flexure with retroperitoneal attachment ascending colon and hepatic flexure requiring extensive dissection Patient Condition at Discharge: Good Plan - Discharge Summary Discharge Rx Participant: No New Discharge Prescriptions: New Simethicone [Gas-X] 125 mg PO AC-TID PRN #30 capsule PRN Reason: Pain Acetaminophen Tab [Tylenol Tab] 1,000 mg PO Q6HR PRN #30 tablet PRN Reason: Pain Ibuprofen [Motrin] 600 mg PO Q8HR PRN #30 tab PRN Reason: Pain Continue Albuterol Inhaler [Ventolin Hfa Inhaler] 1 - 2 puff INHALATION Q6H PRN PRN Reason: sob Ipratropium-Albuterol Nebulize [Duoneb 0.5 mg-3 mg/3 ml Soln] 3 ml INHALATION QID Omeprazole [PriLOSEC] 20 mg PO Q2D lisinopriL [Prinivil] 10 mg PO BID traZODone HCL [Desyrel] 100 mg PO HS QUEtiapine FUMARATE 50 mg PO HS tiZANidine HCL 4 mg PO DAILY Metoprolol Tartrate [Lopressor] 50 mg PO BID [place]-3/Dha/Epa/Fish Oil [Fish Oil 1,000 mg Softgel] 1 each PO DAILY Cholecalciferol [Vitamin D3 (25 Mcg = 1000 Iu)] 50 mcg PO DAILY Levothyroxine Sodium [Synthroid] 50 mcg PO QAM Citalopram Hydrobromide [Citalopram HBr] 20 mg PO QAM Budesonide/Formoterol Fumarate [Symbicort 160-4.5 Mcg Inhaler] 2 puff INHALATION BID Discharge Medication List Albuterol Inhaler [Ventolin Hfa Inhaler] 1 - 2 puff INHALATION Q6H PRN 11/19/23 [History] Budesonide/Formoterol Fumarate [Symbicort 160-4.5 Mcg Inhaler] 2 puff INHALATION BID 11/19/23 [History] Cholecalciferol [Vitamin D3 (25 Mcg = 1000 Iu)] 50 mcg PO DAILY 11/19/23 [History] Citalopram Hydrobromide [Citalopram HBr] 20 mg PO QAM 11/19/23 [History] Ipratropium-Albuterol Nebulize [Duoneb 0.5 mg-3 mg/3 ml Soln] 3 ml INHALATION QID 11/19/23 [History] Levothyroxine Sodium [Synthroid] 50 mcg PO QAM 11/19/23 [History] Metoprolol Tartrate [Lopressor] 50 mg PO BID 11/19/23 [History] [place]-3/Dha/Epa/Fish Oil [Fish Oil 1,000 mg Softgel] 1 each PO DAILY 11/19/23 [History] Omeprazole [PriLOSEC] 20 mg PO Q2D 11/19/23 [History] QUEtiapine FUMARATE 50 mg PO HS 11/19/23 [History] lisinopriL [Prinivil] 10 mg PO BID 11/19/23 [History] tiZANidine HCL 4 mg PO DAILY 11/19/23 [History] traZODone HCL [Desyrel] 100 mg PO HS 11/19/23 [History] Acetaminophen Tab [Tylenol Tab] 1,000 mg PO Q6HR PRN #30 tablet 06/04/24 [Rx] Ibuprofen [Motrin] 600 mg PO Q8HR PRN #30 tab 06/04/24 [Rx] Simethicone [Gas-X] 125 mg PO AC-TID PRN #30 capsule 06/04/24 [Rx] Follow up Appointment(s)/Referral(s): Aliyah Ng MD [STAFF PHYSICIAN] - 06/07/24 6:50 pm (TELEHEALTH - DR CALLS YOU) Patient Instructions/Handouts: Colectomy Diet (DC), Laparoscopic Bowel Resection (GEN) Activity/Diet/Wound Care/Special Instructions: EXPECT BOWEL MOVEMENT WITH BLOOD FOR 1 WEEK, June 10, 2024 TAKE LAXATIVE FOR CONSTIPATION AFTER 4 DAYS, 06/07/24 NO LONG DRIVES OR AIRPLANE RIDES OVER 60 MINUTES FOR THE NEXT 2 WEEKS, Jun 17, DUE TO HIGH RISK OF PULMONARY EMBOLISM/DVTs May drive on 06/06/24 Wear abdominal binder for comfort. No lifting over 4 pounds in 4 weeks Jul 03, 2024 May shower. No bath tub soaks for two weeks until Jun 17 Avoid steak, tough meats and seeds such as raspberry seeds. See diverticulitis, low fiber, colectomy diet Use Tylenol and ibuprofen scheduled for the next 24-48 hours for best pain relief. Use ice along incisions for today to prevent swelling. Discharge Disposition: HOME SELF-CARE
[2024-06-04 16:33] VITALS: BP 109/69; PULSE 71; TEMP 97.5
== END 2024-06-04 16:56 | disposition home or self-care (01) | DRG 331 ==
LOC: ORWHC2ENDO 09:37 → 4SSUR 10:22
PROVIDERS: ADMIT Surgery Plastic and Reconstructive Surgery; ATTEND Surgery Plastic and Reconstructive Surgery
PROC: 0DJD8ZZ Inspection of Lower Intestinal Tract, Via Natural or Artificial Opening Endoscopic (ICD-10-PCS; 2024-06-02)
PROC: 0DNW4ZZ Release Peritoneum, Percutaneous Endoscopic Approach (ICD-10-PCS; 2024-06-03)
PROC: 8E0W4CZ Robotic Assisted Procedure of Trunk Region, Percutaneous Endoscopic Approach (ICD-10-PCS; 2024-06-03)
PROC: 0DTF4ZZ Resection of Right Large Intestine, Percutaneous Endoscopic Approach (ICD-10-PCS; principal; 2024-06-03 14:05)
DX: C18.2 Malignant neoplasm of ascending colon (principal); F32.A Depression, unspecified; F41.1 Generalized anxiety disorder; E03.9 Hypothyroidism, unspecified; E66.01 Morbid (severe) obesity due to excess calories; Z68.32 Body mass index [BMI] 32.0-32.9, adult; K21.9 Gastro-esophageal reflux disease without esophagitis; E86.0 Dehydration; I11.9 Hypertensive heart disease without heart failure; J43.9 Emphysema, unspecified; K57.30 Diverticulosis of large intestine without perforation or abscess without bleeding; K82.8 Other specified diseases of gallbladder; K64.8 Other hemorrhoids; K81.1 Chronic cholecystitis; K66.0 Peritoneal adhesions (postprocedural) (postinfection); Z79.890 Hormone replacement therapy; Z79.51 Long term (current) use of inhaled steroids; Z87.891 Personal history of nicotine dependence; Z99.81 Dependence on supplemental oxygen; Z79.899 Other long term (current) drug therapy
CPT/HCPCS: 45381; 64999; 71046; 80053; 85025; 86850; 86900; 86901; 88304; 88307; 88309; 93005; 94640; 94760